=== PATIENT | male | born 1995 ===

== ENCOUNTER 2024-02-12 09:50 | Outpatient (CLI) | payer OTHER ==
--- NOTE | 2024-02-12 11:50 | MRI Report ---
PROCEDURE: Brain WO INDICATIONS: HEADACHE TECHNIQUE: Noncontrast axial T1 spin echo, axial T2 fast spin echo, sagittal and axial FLAIR, coronal T2 fast sp in echo, axial gradient echo, axial diffusion and ADC through the brain. COMPARISON: None. FINDINGS: Image quality: Excellent. CSF Spaces: Basal cisterns are patent. No extra-axial fluid collections. Ventricles are normal in size and shape. Brain: No intracranial masses or hemorrhage. Torres/white matter interface is normal. Brainstem appe ars normal. Diffusion-weighted images demonstrate no acute ischemic insult. No chronic ischemic ins ults. Normal intravascular flow voids are present. The cerebellar tonsils demonstrate normal shape and are not low-lying. Skull and face: Calvarium has normal marrow signal. Orbits appear normal. Sinuses: Sinuses and mastoids are clear. IMPRESSION: No cause of headache can be seen on these images. To the limits of this noncontrast study, no findings of masses or mass effect can be seen. Negative for Chiari I malformation. No hydrocephalus or brain edema. Reviewed by: Howard Espinosa MD on 02/12/2024 10:49 AM NELY Approved by: Howard Espinosa MD on 02/12/2024 10:49 AM N[facility] Station ID: [id number]
== END 2024-02-12 09:51 | disposition home or self-care (01) ==
LOC: DI 09:50
PROVIDERS: ATTEND Psychiatry & Neurology Neurology
DX: R51.9 Headache, unspecified (principal)